=== PATIENT | male | born 1960 | race Two or more races ===

== ENCOUNTER 2020-10-31 16:51 | Emergency (ER) | payer BC, OTHER ==
[~2020-10-31] VITALS: Ht 175.3 cm; Wt 92.5 kg
--- NOTE | 2020-10-31 17:33 | NUR ---
Patient can not recall exact dosages of his home medicines@this time. will bring the list.
[2020-10-31] MEDS ORDERED: METF-440 PO (17:37)
[2020-10-31] MEDS ORDERED: finasteride PO (17:37)
[2020-10-31] MEDS ORDERED: LOSARTAN PO (17:37)
[2020-10-31] MEDS ORDERED: TAMSULOSIN PO (17:38)
[2020-10-31] MEDS ORDERED: VANCOMYCIN 1G/D5W 200 ML PIGGYBACK IV ONE (17:45)
[2020-10-31] MEDS ORDERED: VANCOMYCIN IV 1,250 MG in IV DEXTROSE 5% 250 ML IV SCH (18:15)
[2020-10-31 20:54] VITALS: BP 110/56
--- NOTE | 2020-10-31 20:54 | NUR ---
Patient discharged to home in stable condition. Written and verbal after care instructions given. Patient verbalizes understanding of instructions. Stressed follow up or return to ER for worsening s/s. Patient out of ER with steady gait, no acute signs of distress, VSS, all belongings taken,
== END 2020-10-31 20:55 | disposition home or self-care (01) ==
LOC: ER 16:51
DX: R78.81 Bacteremia (principal); A49.02 Methicillin resistant Staphylococcus aureus infection, unspecified site; C18.9 Malignant neoplasm of colon, unspecified; Z79.899 Other long term (current) drug therapy
CPT/HCPCS: 96365; 96366; 99284; J7060; A4663